=== PATIENT | male | born 1970 | race American Indian/Alaskan Native ===

== ENCOUNTER 2018-05-20 11:32 | Emergency (ER) | payer OTHER, MEDICAID ==
[2018-05-20 11:33] VITALS: BMI 28.3
[2018-05-20 11:39] VITALS: BP 142/91; PULSE 83; RESP 19; TEMP 98.6; O2SAT 99
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
[2018-05-20] MEDS ORDERED: Naproxen 550 mg Tab PO STA (12:26)
[2018-05-20] MEDS ORDERED: Naproxen 550 mg Tab PO ONE (12:34)
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
== END 2018-05-20 13:30 | disposition home or self-care (01) ==
LOC: C.ER 11:32
DX: S16.1XXA Strain of muscle, fascia and tendon at neck level, initial encounter (principal); S39.012A Strain of muscle, fascia and tendon of lower back, initial encounter; V89.2XXA Person injured in unspecified motor-vehicle accident, traffic, initial encounter

== ENCOUNTER 2018-10-17 22:08 | Emergency (ER) | payer MEDICAID, OTHER ==
[2018-10-17 22:09] VITALS: BMI 28.3
[2018-10-17 22:15] VITALS: BP 134/87; PULSE 79; RESP 16; TEMP 98.2; O2SAT 97
--- NOTE | 2018-10-18 01:22 | C.PDOC ---
History Of Present Illness 48 year old male presents with cough for the past 7 days productive of greenish sputum. Patient states his head now hurts when he coughs but does not have headache when not coughing. He has been trying home remedies with no relief. Denies fever, SOB, or former smoker. Time Seen by Provider: 10/17/18 22:50 Chief Complaint (Nursing): Cough, Cold, Congestion History Per: Patient History/Exam Limitations: no limitations Onset/Duration Of Symptoms: Days (7) Current Symptoms Are (Timing): Still Present Location Of Pain: None Sick Contacts (Context): None Associated Symptoms: Cough, Sputum. denies: Fever, Other (SOB) Ear Symptoms: Bilateral: None Recent travel outside of the [place]: No Past Medical History Reviewed: Historical Data, Nursing Documentation, Vital Signs Vital Signs: Last Vital Signs Temp 98.2 F 10/17/18 22:11 Pulse 79 10/17/18 22:11 Resp 16 10/17/18 22:11 BP 134/87 10/17/18 22:11 Pulse Ox 97 10/17/18 22:11 - Medical History PMH: HTN (diet controlled), Hypercholesterolemia Denies: Depression, Chronic Kidney Disease Surgical History: Appendectomy Family History: States: No Known Family Hx - Social History Hx Tobacco Use: No Hx Alcohol Use: Yes Hx Substance Use: No - Immunization History Hx Tetanus Toxoid Vaccination: No Hx Influenza Vaccination: No Hx Pneumococcal Vaccination: No Review Of Systems Constitutional: Negative for: Fever, Chills ENT: Negative for: Mouth Swelling Cardiovascular: Negative for: Chest Pain, Palpitations Respiratory: Positive for: Cough, Sputum. Negative for: Shortness of Breath Skin: Negative for: Rash Neurological: Negative for: Weakness, Numbness Physical Exam - Physical Exam Appears: Non-toxic, No Acute Distress Skin: Normal Color, Warm, No Rash Head: Atraumatic, Normacephalic Eye(s): bilateral: Normal Inspection, PERRL, EOMI Ear(s): Bilateral: Normal Nose: Other (Left turbinate enlarged) Oral Mucosa: Moist Throat: Normal (No swelling or injection), No Exudate Respiratory: Normal Breath Sounds, No Accessory Muscle Use, Other (Normal inspiratory effort. Dry cough.) Neurological/Psych: Oriented x3, Normal Speech ED Course And Treatment O2 Sat by Pulse Oximetry: 97 (Room air) Pulse Ox Interpretation: Normal Medical Decision Making Medical Decision Making: Chest xray did not reveal any infiltrates or consolidation. This patient is well appearing and in no resp distress. Disposition Counseled Patient/Family Regarding: Diagnosis, Need For Followup - Disposition Disposition: HOME/ ROUTINE Disposition Time: :18 Condition: STABLE Prescriptions: Albuterol HFA [Ventolin HFA 90 mcg/actuation (8 g)] 2 puff IH [id number] #1 inhaler Guaifenesin/Dextromethorphan [Guaifenesin Dm Syrup] 5 ml PO QID #237 ml Instructions: Acute Bronchitis, Adult (DC) Forms: [facility] (Welsh), General Discharge Instructions - Clinical Impression Clinical Impression: Bronchitis - PA / EAR NOSE THROAT PHYSICIAN / Resident Statement MD/DO has reviewed & agrees with the documentation as recorded. - Scribe Statement The provider has reviewed the documentation as recorded by the Scribe Dennis Martinez All medical record entries made by the Scribe were at my direction and personally dictated by me. I have reviewed the chart and agree that the record accurately reflects my personal performance of the history, physical exam, medical decision making, and the department course for this patient. I have also personally directed, reviewed, and agree with the discharge instructions and disposition.
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
== END 2018-10-18 01:59 | disposition home or self-care (01) ==
LOC: C.ER 22:08
DX: J40 Bronchitis, not specified as acute or chronic (principal)